=== PATIENT | female | born 1945 | race Caucasian/White ===

== ENCOUNTER 2024-10-30 11:25 | Emergency (ER) | payer MEDICARE, SELFPAY ==
--- NOTE | ~2024-10-30 | XR_ITS ---
HISTORY: fell out of shower COMPARISON: None TECHNIQUE: 3 views of the left hand were performed. FINDINGS: No acute fracture is identified. 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 Narrowing of the distal interphalangeal joint spaces are also noted. The remaining joint spaces are otherwise preserved. The carpal arcs are intact. Moderate radiocarpal joint space narrowing with sclerosis of the distal radius is present. Periarticular osteopenia is identified suggesting osteoarthritis. Severe degenerative disease within the first carpometacarpal joint space, a pattern consistent with o steoarthritis. Soft tissue swelling is appreciated over the fourth and fifth proximal phalanx. No radiopaque foreign body is identified. 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 Reviewed, dictated and finalized at location A. IMPRESSION: Severe degenerative disease, likely advanced osteoarthritis without acute fract ure.
[2024-10-30 11:44] VITALS: BP 151/53; PULSE 59; RESP 16; TEMP 36.7; O2SAT 98
--- NOTE | 2024-10-30 12:31 | ED_ITS ---
HPI - Fall General Chief Complaint: Fall Stated Complaint: FALL Time Seen by Provider: 10/30/24 12:31 Source: patient Mode of arrival: ambulatory Limitations: no limitations History of Present Illness HPI Narrative: 78 yo F presents with pain and swelling to L middle and ring finger. Yesterday, fell while getting out of shower. slide across the floor and two fingers jammed into door. Denies hitting head, no LOC. Was able to get up on her own. Arrived with finger wrapped by granddaughter. distal NV intact, ROM decreased due to pain. All systems reviewed and negative except as noted above. Related Data Home Medications ?Medication ?Instructions ?Recorded ?Confirmed ?Last Taken ?Type albuterol sulfate 90 mcg/actuation inhalation 10/30/24 Unknown History aerosol inhaler allopurinol 300 mg tablet mg 10/30/24 Unknown History budesonide-formoterol HFA 160 inhalation 10/30/24 Unknown History mcg-4.5 mcg/actuation aerosol inhaler (Symbicort) carvedilol 12.5 mg tablet mg 10/30/24 Unknown History furosemide 40 mg tablet mg 10/30/24 Unknown History gabapentin 300 mg capsule mg 10/30/24 Unknown History hydrocodone 5 mg-acetaminophen 325 tablet 10/30/24 Unknown History mg tablet insulin glargine 100 unit/mL unit subcut 10/30/24 Unknown History subcutaneous solution (Lantus U-100 Insulin) isosorbide mononitrate 60 mg mg PO 10/30/24 Unknown History tablet,extended release 24 hr losartan 50 mg-hydrochlorothiazide tablet 10/30/24 Unknown History 12.5 mg tablet metformin 1,000 mg tablet mg 10/30/24 Unknown History omeprazole 20 mg capsule,delayed mg 10/30/24 Unknown History release ondansetron HCl 4 mg tablet mg 10/30/24 Unknown History ropinirole 1 mg tablet mg 10/30/24 Unknown History rosuvastatin 10 mg tablet mg 10/30/24 Unknown History tizanidine 2 mg tablet mg 10/30/24 Unknown History tramadol 50 mg tablet mg 10/30/24 Unknown History venlafaxine 75 mg capsule,extended mg PO 10/30/24 Unknown History release 24 hr verapamil 180 mg 24 hr mg PO 10/30/24 Unknown History capsule,extended release Allergies Allergy/AdvReac Type Severity Reaction Status Date / Time No Known Allergies Allergy Verified 10/30/24 11:56 Review of Systems Review of Systems: CONSTITUTIONAL: Denies fever, chills, or sweats. EYES: Denies visual changes, redness, or discharge. ENT: Denies rhinorrhea, congestion, sore throat, or otalgia. CARDIOVASCULAR: Denies chest pain, palpitations, or edema. RESPIRATORY: Denies cough or dyspnea. GASTROINTESTINAL: Denies abdominal pain, nausea, vomiting, or diarrhea. GENITOURINARY: Denies dysuria or hematuria. SKIN: Denies rash or itching. MUSCULOSKELETAL: Denies back pain, joint pain, or myalgia. Reports pain and swelling to left middle and ring finger. NEUROLOGIC: Denies headache, numbness, or weakness. PSYCHIATRIC: Denies anxiety or depression. All other systems reviewed are negative, except as documented in HPI. PMFSH Comments At time of signature, agree with nursing past medical, surgical, social and family history. There is no relevant family history pertinent to the presenting complaint. Exam Narrative: GENERAL: This is a well-nourished, well-developed patient, in no apparent distress. HEAD: normocephalic, atraumatic. EYES: PERRL. Sclera clear/white. Vision is grossly intact. EARS: External ears normal NOSE: External nose normal NECK: Neck supple, non-tender without lymphadenopathy, masses or thyromegaly. CARDIOVASCULAR: Regular rate and rhythm without murmurs, gallops, or rubs. RESPIRATORY: Clear to auscultation. Breath sounds equal bilaterally. No wheezes, rales, or rhonchi. SKIN: warm, Dry, intact with no suspicious lesions or rash, good texture and turgor. NEURO: awake, alert, and oriented to person, place and time. There were no obvious focal neurologic abnormalities. EXTREMITIES: swelling, bruisin to middle and ring finger of L hand, tenderness proximal phalanx. no deformity. flexion decreased due to pain. Course Course Level of Care: Express Care Visit Vital Signs Vital signs: Vital Signs Temperature 36.7 C 10/30/24 11:44 Pulse Rate 59 L 10/30/24 11:44 Respiratory Rate 16 10/30/24 11:44 Blood Pressure 151/53 H 10/30/24 11:44 Pulse Oximetry 98 10/30/24 11:44 Oxygen Delivery Room Air 10/30/24 11:44 Temperature 36.7 C 10/30/24 11:44 Pulse Rate 59 L 10/30/24 11:44 Respiratory Rate 16 10/30/24 11:44 Blood Pressure 151/53 H 10/30/24 11:44 Pulse Oximetry 98 10/30/24 11:44 Oxygen Delivery Room Air 10/30/24 11:44 reviewed MDM - Fall MDM Narrative Medical decision making narrative: discussed x-ray results with pt. negative for fracture. placed in finger splint to middle and ring finger of L hand. Pt voiced comfort. recommend OTC pain medications, rest, elevation, ice. Will see PCP if pain not improving. Differential Diagnosis Differential diagnosis: Likely other (hand fracture, finger fracture, hand contusion, finger sprain) Imaging Data My impression: agree with radiologist Radiologist's impression: HISTORY: fell out of shower COMPARISON: None TECHNIQUE: 3 views of the left hand were performed. FINDINGS: No acute fracture is identified. 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 Narrowing of the distal interphalangeal joint spaces are also noted. The remaining joint spaces are otherwise preserved. The carpal arcs are intact. Moderate radiocarpal joint space narrowing with sclerosis of the distal radius is present. Periarticular osteopenia is identified suggesting osteoarthritis. Severe degenerative disease within the first carpometacarpal joint space, a pattern consistent with osteoarthritis. Soft tissue swelling is appreciated over the fourth and fifth proximal phalanx. No radiopaque foreign body is identified. 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 Discharge Plan Discharge Clinical Impression: Sprain of left middle finger Qualifiers: Encounter type: initial encounter Sprain of finger site: unspecified site Qualified Code(s): S63.613A - Unspecified sprain of left middle finger, initial encounter Sprain of left ring finger Qualifiers: Encounter type: initial encounter Sprain of finger site: unspecified site Qualified Code(s): S63.615A - Unspecified sprain of left ring finger, initial encounter Patient Disposition: Home Condition: Stable Instructions: Finger Sprain (ED) Additional Instructions: The x-ray of your left hand was negative for fracture. Take tylenol every 6 to 8 hours as needed for pain. Elevate when at rest. Wear splint for comfort. See your doctor if pain is not improving. Patient Language: [place] Prescriptions: No Action allopurinol 300 mg tablet furosemide 40 mg tablet venlafaxine 75 mg capsule,extended release 24hr PO carvedilol 12.5 mg tablet ropinirole 1 mg tablet insulin glargine [Lantus U-100 Insulin] 100 unit/mL solution SUBCUT tizanidine 2 mg tablet hydrocodone-acetaminophen 5-325 mg tablet ondansetron HCl 4 mg tablet tramadol 50 mg tablet verapamil 180 mg capsule,ext rel. pellets 24 hr PO isosorbide mononitrate 60 mg tablet extended release 24 hr PO metformin 1,000 mg tablet gabapentin 300 mg capsule omeprazole 20 mg capsule,delayed release(DR/EC) albuterol sulfate 90 mcg/actuation HFA aerosol inhaler INHALATION losartan-hydrochlorothiazide 50-12.5 mg tablet rosuvastatin 10 mg tablet budesonide-formoterol [Symbicort] 160-4.5 mcg/actuation HFA aerosol inhaler INHALATION Follow-up/Referrals: PHYSICIAN,[employer] [place] [employer] [Primary Care Provider] - Time of Disposition: 13:22
== END 2024-10-30 13:25 | disposition home or self-care (01) ==
PROVIDERS: Emergency Provider Nurse Practitioner Family
DX: S63.613A Unspecified sprain of left middle finger, initial encounter (principal); S63.615A Unspecified sprain of left ring finger, initial encounter; W19.XXXA Unspecified fall, initial encounter; Z86.39 Personal history of other endocrine, nutritional and metabolic disease; Z86.79 Personal history of other diseases of the circulatory system
CPT/HCPCS: 29130 ×2; 73130; 99203; G0463